=== PATIENT | female | born 1950 | race Caucasian/White ===

== ENCOUNTER → 2017-07-19 | Outpatient (CLI) | payer MEDICARE, OTHER | LOC: MC.RAD 07:00 | DX: Z12.31 Encounter for screening mammogram for malignant neoplasm of breast (principal) ==

== ENCOUNTER → 2019-08-31 | Outpatient (CLI) | payer MEDICARE, OTHER | LOC: MC.RAD 08:08 | DX: Z12.31 Encounter for screening mammogram for malignant neoplasm of breast (principal) ==

== ENCOUNTER → 2020-09-02 | Outpatient (CLI) | payer MEDICARE | LOC: MC.RAD 11:28 | DX: Z12.31 Encounter for screening mammogram for malignant neoplasm of breast (principal) ==

== ENCOUNTER → 2021-09-09 | Outpatient (CLI) | payer MEDICARE | LOC: MC.RAD 16:12 | DX: Z12.31 Encounter for screening mammogram for malignant neoplasm of breast (principal) ==

== ENCOUNTER → 2022-10-05 | Outpatient (CLI) | payer MEDICARE, OTHER ==
[~2022-10-05] MED LIST: CALCIUM 600MG+D1 TAB PO; CLEVER CHOICE1 EA20 MC; DEEP SEA 45 ML45 ML NS; FLONASE NASAL S16 GM NS; FOSAMAX 70MG TA70 MG PO; OMNICEF 300MG300 MG PO; PROAIR HFA0.09 MG/AC IH; TESSALON P100 MG/CAP PO; ZESTRIL 5MG5 MG PO
== END ==
LOC: MC.RAD 07:39
DX: Z12.31 Encounter for screening mammogram for malignant neoplasm of breast (principal)

== ENCOUNTER 2023-11-06 11:48 | Emergency (ER) | payer MEDICARE, OTHER ==
[~2023-11-06] VITALS: Ht 157.5 cm; Wt 59.5 kg
[2023-11-06 11:56] VITALS: TEMP 97.8
[2023-11-06 13:34] VITALS: BP 124/69; PULSE 75
== END 2023-11-06 13:38 | disposition home or self-care (01) ==
LOC: COL.ER 11:48
DX: J10.1 Influenza due to other identified influenza virus with other respiratory manifestations (principal)